=== PATIENT | female | born 1975 | race Caucasian/White ===

== ENCOUNTER 2017-06-20 19:03 | Emergency (ER) | payer MEDICAID ==
[~2017-06-20] VITALS: Ht 165.1 cm; Wt 65.0 kg
[~2017-06-20 19:03] MED LIST: FERR-43 PO; PREN-88 PO
[2017-06-20 19:05] VITALS: BP 137/79
== END 2017-06-21 01:18 | disposition left against medical advice (07) ==
LOC: ER 19:03
DX: R11.0 Nausea (principal); Z53.21 Procedure and treatment not carried out due to patient leaving prior to being seen by health care provider